=== PATIENT | female | born 1960 | race Caucasian/White ===

== ENCOUNTER 2018-12-17 10:17 | Day surgery (SDC) | payer OTHER ==
[2018-12-16 12:31] VITALS: BMI 24.9
[2018-12-17] MEDS ORDERED: Clindamycin/D5W 900 mg/50 ml Premix Bag ONE (11:44)
[2018-12-17] MEDS ORDERED: Midazolam HCl 2 mg/2 ml Vial ONE (12:52)
[2018-12-17] MEDS ORDERED: Fentanyl 100 MCG/2 ML VIAL ONE (12:52)
[2018-12-17] MEDS ORDERED: Scopolamine 1.5 mg/72 hour Patch ONE (12:54)
[2018-12-17] MEDS ORDERED: Ropivacaine 0.5% HCl/PF (150 MG/30 ML VIAL) ONE (13:27)
[2018-12-17] MEDS ORDERED: Ropivacaine 0.2% HCl/PF (40 MG/20 ML VIAL) ONE (13:27)
[2018-12-17] MEDS ORDERED: Zolpidem Tartrate 5 MG TAB PO PRN (13:46)
[2018-12-17] MEDS ORDERED: Promethazine HCl 25 MG/ML VIAL IM PRN (13:46)
[2018-12-17] MEDS ORDERED: HYDROcodone/Acetaminophen 10/325 mg Tablet PO PRN ×2 (13:46)
[2018-12-17] MEDS ORDERED: traMADol HCl 50 MG TAB PO PRN ×2 (13:46)
[2018-12-17] MEDS ORDERED: Ondansetron PF 4 MG/2 ML Vial IVP PRN (13:46)
[2018-12-17] MEDS ORDERED: Ketorolac Tromethamine 30 MG/ML VIAL IVP PRN (13:46)
[2018-12-17] MEDS ORDERED: Fentanyl 100 MCG/2 ML VIAL IV PRN (13:46)
[2018-12-17] MEDS ORDERED: Ropivacaine 0.2% 550 ML 550 ML NERVE BLCK SCH (13:46)
[2018-12-17] MEDS ORDERED: Lidocaine 1% PF 5 ML VIAL ONE (13:56)
[2018-12-17] MEDS ORDERED: Ondansetron PF 4 MG/2 ML Vial ONE (13:56)
[2018-12-17] MEDS ORDERED: Ketorolac Tromethamine 30 MG/ML VIAL ONE (13:56)
[2018-12-17] MEDS ORDERED: ePHEDrine 50 MG/ML VIAL ONE (13:56)
[2018-12-17] MEDS ORDERED: PROPOFOL 200 MG/20 ML VIAL ONE (13:56)
--- NOTE | 2018-12-17 16:28 | RAD ---
LEFT WRIST THREE VIEWS: HISTORY: Left wrist fracture, status post ORIF. COMPARISON: 12/13/2018 FINDINGS/IMPRESSION: Multiple limited intraoperative fluoroscopic views of the left wrist show the patient to be status po st plate and screw fixation of the comminuted distal radius fracture. There is better alignment of t he radial carpal joint. POS: [facility]
--- NOTE | 2018-12-17 22:04 | OP ---
DATE OF PROCEDURE: 12/17/2018 OPERATION: Open reduction and internal fixation of left distal radius fracture. PREOPERATIVE DIAGNOSIS: Displaced left distal radius fracture. POSTOPERATIVE DIAGNOSES: Displaced left distal radius fracture. COMPLICATIONS: None. ESTIMATED BLOOD LOSS: Minimal. MECHANICAL FITTER: Nancy Ruffin PA-C IMPLANTS: Synthes volar distal radius plate with multiple locking and nonlocking screws. INDICATIONS: Ms. Stewart is a 58-year-old female, who fell. She fractured her left wrist. She had a displaced distal radius fracture that was indicated for open reduction and internal fixation. Risks were reviewed. She elected to proceed with the operation. DESCRIPTION OF PROCEDURE: Ms. Stewart was identified in the preoperative holding area. Her correct extremity was marked. She was carried to the operating room. She was positioned supine. General anesthesia was induced. A multidisciplinary time-out was performed. The left upper extremity was prepped and draped in a sterile fashion. We began the procedure with a volar FCR approach to the wrist. We dissected down through the subcutaneous tissues to the FCR tendon which was incised. We retracted the tendon sheath. We then exposed the underlying pronator quadratus which was elevated from the distal radius. At this point, we reduced the fracture using a reduction clamp as well as [place] elevator. Once we had an anatomic reduction, we applied a Synthes volar distal radius plate. A screw was placed proximally, followed by multiple nonlocking screws. We took x-ray images confirming plate placement and hardware. There were no complications. At this point, we thoroughly irrigated with copious lavage after all her hardware was placed. We then closed with a 2-0 Vicryl suture, followed by nylon for the skin. A sterile dressing was applied. The patient was placed in a splint and taken to the recovery room in good condition without complication. Job ID: [id number]
== END 2018-12-17 17:00 | disposition home or self-care (01) ==
LOC: SDC 10:17
PROVIDERS: ATTEND Orthopaedic Surgery
PROC: 0PSJ04Z Reposition Left Radius with Internal Fixation Device, Open Approach (ICD-10-PCS; principal; 2018-12-17)
DX: S52.532A Colles' fracture of left radius, initial encounter for closed fracture (principal); E78.00 Pure hypercholesterolemia, unspecified; F32.9 Major depressive disorder, single episode, unspecified; G43.909 Migraine, unspecified, not intractable, without status migrainosus; Z90.710 Acquired absence of both cervix and uterus; Z90.49 Acquired absence of other specified parts of digestive tract; Z88.1 Allergy status to other antibiotic agents; Z88.8 Allergy status to other drugs, medicaments and biological substances; Z79.82 Long term (current) use of aspirin; Z79.899 Other long term (current) drug therapy; Z98.890 Other specified postprocedural states; W19.XXXA Unspecified fall, initial encounter
CPT/HCPCS: 76000; A4306; C1713; J1885; J2001; J2250; J2405; J2704; J2795; J3010; J3490